=== PATIENT | female | born 1995 | race Caucasian/White ===

== ENCOUNTER → 2024-12-11 08:12 | Outpatient (CLI) | payer OTHER, SELFPAY ==
[2024-12-11 08:44] LABS: Add Manual Diff / Slide Review NO; Basophils Absolute Auto 100 /uL (0-100); Eosinophils Absolute Auto 200 /uL (0-450); Eosinophils Percent Auto 3.6 % (2-4); Hematocrit 39.5 % (36-46); Hemoglobin 13.2 g/dL (12.0-16.0); Lymphocytes Absolute Auto 1600 /uL (1100-4500); Lymphocytes Percent Auto 25.5 % (25-40); Mean Corpuscular HGB Conc 33.5 % (30-36); Mean Corpuscular Hemoglobin 28.5 PG (26-34); Mean Corpuscular Volume 85.1 fL (80-100); Monocytes Absolute Auto 400 /uL (0-900); Monocytes Percent Auto 6.5 % (3-14); Neutrophils Absolute Auto 3900 /uL (1500-7000); Neutrophils Percent Auto 62.4 % (50-75); Platelet Count 256 X10^3/uL (150-400); Red Blood Cell Count 4.64 X10^6/uL (4.0-5.2); Red Cell Distribution Width 13.8 % (11.6-14.8); White Blood Cell Count 6.3 X10^3/uL (4.5-11.0)
[2024-12-11 08:54] LABS: Hemoglobin A1C% w Est Avg Glu 5.2 % (4.0-6.0)
[2024-12-11 09:04] LABS: Alanine Aminotransferase 41 IU/L (<35); Albumin 4.7 g/dL (3.5-5.0); Alkaline Phosphatase 71 U/L (38-126); Aspartate Aminotransferase 37 IU/L (14-36); BUN Creatinine Ratio 12.9 (6-22); Bilirubin Total 0.6 mg/dL (0.2-1.3); Blood Urea Nitrogen 11 mg/dL (7-17); Calcium 9.6 mg/dL (8.4-10.2); Carbon Dioxide 25 mmol/L (22-32); Chloride 105 mmol/L (98-107); Cholesterol 205 mg/dL (140-199); Estimated Glomerular Filt Rate > 60 mL/min (>60); Globulin 2.4 g/dL (1.7-4.1); Glucose 102 mg/dL (70-100); HDL Cholesterol 49 mg/dL (40-60); HEMOLYSIS < 15 (0-50); LDL Cholesterol Calculated 131 mg/dL (<100); Potassium 4.5 mmol/L (3.4-5.1); Sodium 137 mmol/L (137-145); Total Protein 7.1 g/dL (6.3-8.2); Triglycerides 125 mg/dL (35-150)
[2024-12-11 09:33] LABS: Cortisol AM (Before 10AM) 5.72 ug/dL (4.46-22.7); TSH w/ Reflex to FT4 2.02 uIU/mL (0.47-4.68)
[2024-12-11 10:12] LABS: Ur Creatinine Normal (Normal); Ur Specific Gravity Normal (Normal); Urine Tetrahydrocannabinol Negative (Negative); Urine pH Normal (Normal)
[2024-12-11 10:13] LABS: UR Morphine/Opiate cutoff 300 Negative (Negative); Urine Amphetamines Positive (Negative); Urine Barbiturates Negative (Negative); Urine Benzodiazepines Negative (Negative); Urine Cocaine Negative (Negative); Urine MDMA Negative (Negative); Urine Methadone Negative (Negative); Urine Methamphetamines Negative (Negative); Urine Oxycodone Negative (Negative); Urine Phencyclidine Negative (Negative); Urine Tricyclic Antidepressant Negative (Negative)
== END ==
LOC: LAB 08:14
PROVIDERS: PCP Family Medicine; Referring Provider Family Medicine; Visit Provider Family Medicine
DX: R63.5 Abnormal weight gain (principal); F41.1 Generalized anxiety disorder; K58.9 Irritable bowel syndrome, unspecified; F90.9 Attention-deficit hyperactivity disorder, unspecified type; F19.20 Other psychoactive substance dependence, uncomplicated
CPT/HCPCS: 36415; 80053; 80061; 80305; 82533; 83036; 84443; 85025

== ENCOUNTER → 2024-12-21 06:51 | Outpatient (CLI) | payer OTHER, SELFPAY ==
--- NOTE | 2024-12-21 06:52 | DI.US.S_ITS ---
PROCEDURE: US PELVIC COMPLETE INDICATIONS: DUB TECHNIQUE: Real-time scanning was performed of the pelvic organs, with image documentation. Additional endovaginal scanning was necessary due to incomplete visualization of the adnexal and endometrial structures by transabdominal scanning. COMPARISON: None. FINDINGS: Uterus: Uterus is anteverted and normal in size at 8.5 x 3.6 x 5.9 cm. The myometrium is homogeneous. The endometrium measures 3.8 mm combined thickness. No endometrial mass or fluid is seen. Intrauterine device is seen in its normal central endometrial location. Ovaries: The ovaries are not visualized due to overlying bowel gas. No adnexal masses are seen. Other: No pathologic free abdominal or pelvic fluid. IMPRESSION: 1. Intrauterine device is seen in its normal central endometrial location. No endometrial mass or fluid. No discrete uterine fibroids. 2. Bilateral ovaries are not visualized. No adnexal mass. We strive to produce accurate, complete, and clear reports of imaging services. To assist us in improving patient care, this report was composed using standard report templates and voice recognition software. Therefore, it may contain abnormal punctuation, insertions and/or omissions. Occasional wrong-word or sound-alike substitutions may occur. Though we review the report and make efforts to correct it, we do recommend that the report be read carefully in proper context to recognize any text inaccuracies. Dictated by: Kenny Amaro M.D. on 12/21/2024 at 14:02 Approved by: Kneny Amaro M.D. on 12/21/2024 at 14:05
== END ==
PROVIDERS: PCP Family Medicine; Referring Provider Family Medicine; Visit Provider Family Medicine
DX: N93.9 Abnormal uterine and vaginal bleeding, unspecified (principal); Z97.5 Presence of (intrauterine) contraceptive device
CPT/HCPCS: 76830; 76856

== ENCOUNTER → 2024-12-31 15:50 | Outpatient (CLI) | payer OTHER, SELFPAY ==
--- NOTE | 2025-01-01 15:38 | DIET.OUTPTC ---
Dietary Outpatient Consultation Note Consultation Date: 01/01/2025 Assessment: 29 y F referred to dietitian for abnormal weight gain. Gabe is wanting to work on weight management/healthy sustainable eating patterns to feel better. Has questions regarding macronutrient distributions Suspects food sensitives Gluten? dairy? Has questions regarding need to eliminate these based on PCOS. Some symptoms IBS: Diarrhea: liquid on and off- never goes a month without BMs: M-W BMs all day x5/day, not so much during end of week, 1x/day 5x/wk N with diarrhea d/t pain BRAT diet after diarrhea- pain/abd cramping 1-2 hours before diarrhea Stool has bright yellow/green color bile Notes excessive sugar intake leads to diarrhea Also questioning relationship of lactose with diarrhea. 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 Diet recall: B-consistent: egg and toast or pb and toast + veg smoothie + protein powder S- Protein bar L-carb, protein, veg (i.e string cheese, cucumber, crackers) D-home cooked meals or frozen foods Snacks: include chips Using adelina to track calories and macros which is set at 1700 kcals, 142 g protein, 35% CHO, 30ish% fat (56 g) Has been using adelina for last week and feels it is helpful. Struggling to get that amount of protein. Protein goal is excessive protein. This was discussed. Has been working hard to ensure she gets lunch in. Eats slow at lunch time and working while eating, sometimes struggles to finish lunch. Sometimes notes if skipped lunch or little intake at lunch gets home from work and is extremely hungry (1-3 on hunger-fullness scale). Notes struggling with some incidents of eating of chips or other foods at night. Feels unable to stop self. Feels overly full and uncomfortable after. Notes sometimes diarrhea occurs after these incidences eating of chips. Ht: 5 ft 5.5 in Wt: 250 lb 6 oz BMI: 41 Nutrition Diagnosis: Food nutrition related knowledge deficit r/t limited previous nutrition educ aeb pt unsure about what macro nutrient distribution is best Interventions: Discussed and provided handouts on: -Tracking symptoms and food intake to find pattern/explore symptoms r/t lactose intake (provided guide) -GI referral/f/u with PCP regarding diarrhea -Appropriate macronutrient distribution -Consistent and adequate lunch/snack intakes during day to prevent excess hunger at night -First-line considerations for IBS -Pairing snacks -Soluble fiber -Hunger-fullness scale EER: 45% CHO, 75 g protein (60-90g), 25-28 g fiber/day Monitoring/Evaluations: f/u 1 month Electronically Signed by: Brisa Jha 01/01/25 15:38 Clinical Dietitian [address] [id number]
== END ==
LOC: DIET 15:51
PROVIDERS: PCP Family Medicine; Referring Provider Family Medicine
DX: R63.5 Abnormal weight gain (principal); R19.7 Diarrhea, unspecified; Z68.41 Body mass index [BMI] 40.0-44.9, adult; Z71.3 Dietary counseling and surveillance
CPT/HCPCS: 97802

== ENCOUNTER → 2025-02-04 14:55 | Outpatient (CLI) | payer OTHER, SELFPAY ==
--- NOTE | 2025-02-04 17:02 | DIET.CONS ---
Dietary Consultation Note Admission Date: Assessment: Gabe presents for f/u. Reports adding fiber sources to all meals, eating slower, eating lunch more consistently, and having meals scheduled for dinners have been helpful. Has noticeably less incidents of diarrhea. Still has yellow color in stool, is following with PCP tomorrow to discuss this. Notes at walk in clinic she had lost 4 lb. Notes decrease in food noise, not having snacks after dinner, but rather feels comfortably full. Decreased incidences in feeling uncomfortably full after eating d/t eating too quickly. Reports better energy levels. Struggles with dinner choices if there is no meal plan on the schedule. Started metformin with mild to none side effects. Has questions regarding nutrition for PCOS and wants to verify things she has seen on the internet. Nutrition Diagnosis: Interventions: -Nutrition in PCOS including consistent intakes and fibrous carbs, carb portion sizing -Provided support and encouragement for pt's current successes Goals: -Continue with maintaining previous goals -Have back-up meal options thought out for easily prepared food with ingredients already common in the house to have as options when there isn't a scheduled meal EER: 45% CHO, 75 g protein (60-90g), 25-28 g fiber/day Monitoring/Evaluations: f/u 1 month Electronically Signed by: Brisa Jha 02/04/25 17:02 Clinical Dietitian [address] [id number]
== END ==
LOC: DIET 14:55
PROVIDERS: PCP Family Medicine; Referring Provider Family Medicine
DX: R63.5 Abnormal weight gain (principal); E28.2 Polycystic ovarian syndrome; Z71.3 Dietary counseling and surveillance
CPT/HCPCS: 97803

== ENCOUNTER → 2025-04-22 09:00 | Outpatient (CLI) | payer OTHER, SELFPAY ==
[2025-04-22 10:03] LABS: Alanine Aminotransferase 34 IU/L (<35); Albumin 4.5 g/dL (3.5-5.0); Albumin Globulin Ratio 1.9 (1.0-2.8); Alkaline Phosphatase 68 U/L (38-126); Aspartate Aminotransferase 37 IU/L (14-36); BUN Creatinine Ratio 14.1 (6-22); Bilirubin Total 0.5 mg/dL (0.2-1.3); Blood Urea Nitrogen 12 mg/dL (7-17); Carbon Dioxide 24 mmol/L (22-32); Chloride 105 mmol/L (98-107); Estimated Glomerular Filt Rate > 60 mL/min (>60); Globulin 2.4 g/dL (1.7-4.1); Glucose 93 mg/dL (70-99); HEMOLYSIS < 15 (0-50); Potassium 4.2 mmol/L (3.4-5.1); Sodium 138 mmol/L (137-145); Total Protein 6.9 g/dL (6.3-8.2)
== END ==
PROVIDERS: PCP Family Medicine; Referring Provider Family Medicine; Visit Provider Family Medicine
DX: E28.2 Polycystic ovarian syndrome (principal)
CPT/HCPCS: 36415; 80053

== ENCOUNTER → 2025-10-01 11:11 | Outpatient (CLI) | payer OTHER, SELFPAY ==
[2025-10-01 12:03] LABS: Add Manual Diff / Slide Review NO; Hematocrit 40.4 % (36-46); Hemoglobin 13.7 g/dL (12.0-16.0); Lymphocytes Absolute Auto 1700 /uL (1100-4500); Mean Corpuscular HGB Conc 33.9 % (30-36); Mean Corpuscular Hemoglobin 29.0 PG (26-34); Mean Corpuscular Volume 85.6 fL (80-100); Platelet Count 235 X10^3/uL (150-400)
[2025-10-01 12:46] LABS: Alanine Aminotransferase 31 IU/L (<35); Albumin 4.7 g/dL (3.5-5.0); Albumin Globulin Ratio 1.8 (1.0-2.8); Alkaline Phosphatase 56 U/L (38-126); Blood Urea Nitrogen 10 mg/dL (7-17); Calcium 9.7 mg/dL (8.4-10.2); Carbon Dioxide 24 mmol/L (22-32); Chloride 104 mmol/L (98-107); Estimated Glomerular Filt Rate > 60 mL/min (>60); Globulin 2.6 g/dL (1.7-4.1); Glucose 93 mg/dL (70-99); HEMOLYSIS < 15 (0-50); Potassium 3.9 mmol/L (3.4-5.1); Sodium 139 mmol/L (137-145); Total Protein 7.3 g/dL (6.3-8.2)
[2025-10-01 13:17] LABS: TSH w/ Reflex to FT4 0.78 uIU/mL (0.47-4.68)
== END ==
PROVIDERS: PCP Family Medicine; Referring Provider Family Medicine; Visit Provider Family Medicine
DX: E88.810 Metabolic syndrome (principal); R42 Dizziness and giddiness; E66.9 Obesity, unspecified
CPT/HCPCS: 36415; 80053; 84443; 85025

== ENCOUNTER → 2025-10-20 05:21 | Outpatient (CLI) | payer OTHER, SELFPAY ==
--- OUTSIDE RECORDS SUMMARY | 2025-10-22 13:08 | XMS_ITS | Clinical Summary ---
Author Organization [facility] Address [address] [place] [address] Care Team Providers Care Water Quality Technician Name Role Phone Unavailable Primary Care Provider Unavailabl e Social History Tobacco Use Types Packs/Day Years Used Date Smoking Tobacco: Never Assessed Comments Unknown Sex and Gender Information Value Date Recorded Sex Assigned at Not on file Legal Sex Female 4:59 AM PST Gender Identity Not on file Sexual Orientation Not on file Plan of Treatment Not on file
--- OUTSIDE RECORDS SUMMARY | 2025-10-22 13:09 | XMS_ITS | Clinical Summary ---
Author Organization [facility] Address [address] [place] [address] Care Team Providers Care Pain Management Specialist Name Role Phone Pcp, None Selected Primary Care Provider Unavail able Social History Tobacco Use Types Packs/Day Years Used Date Smoking Tobacco: Never Assessed Comments Unknown Sex and Gender Information Value Date Recorded Sex Assigned at Not on file Legal Sex Female 1:12 PM PDT Gender Identity Not on file Sexual Orientation Not on file Last Filed Vital Signs Vital Sign Reading Time Taken Comments Blood Pressure 118/80 10/22/2016 9:31 AM PST Pulse 72 10/22/2016 9:31 AM PST Temperature - - Respiratory Rate - - Oxygen Saturation - - Inhaled Oxygen Concentration - - Weight 76 kg (167 lb 8 oz) 10/22/2016 9:31 AM PS T Height 165.1 cm (5' 5) 10/22/2016 9:31 AM PST Body Mass Index 27.87 10/22/2016 9:31 AM PST Plan of Treatment Not on file Care Teams Pain Management Specialist Relationship Specialty Start Date End Date Pcp, None Selected PCP - General 03/18/25
== END ==
PROVIDERS: PCP Family Medicine; Referring Provider Family Medicine; Visit Provider Family Medicine
DX: R00.2 Palpitations (principal); R42 Dizziness and giddiness
CPT/HCPCS: 93246